=== PATIENT | male | born 1985 | race Caucasian/White ===

== ENCOUNTER 2021-04-23 09:48 | Emergency (ER) | payer BC ==
[2021-04-23 10:13] VITALS: BP 139/85; PULSE 84
--- NOTE | 2021-04-23 10:42 | EDM.PDOC ---
ED HPI GENERAL MEDICAL PROBLEM - General Chief Complaint: Respiratory Problem Stated Complaint: POSS FLU\FEVER\CHILLS Time Seen by Provider: 04/23/21 10:04 Source of Information: Reports: Patient History Limitations: Reports: No Limitations - History of Present Illness INITIAL COMMENTS - FREE TEXT/NARRATIVE: Mr. Blanco is a very pleasant 35-year-old gentleman who now presents to the ED stating that he developed sinus congestion with drainage of green mucus, bilateral ear fullness, worse on the left than the right, a cough productive of greenish sputum, fatigue, and a headache, this past 04/20/2021. He was seen at the [place] walk-in [facility] on 04/21/2021. He states that no tests were performed, but the provider thought that he had ear and sinus i nfections, therefore prescribed him Augmentin 875 mg po BID, which she has been taking as prescribed. He then went from the walk-in clinic to the COVID clinic, where he tested negative. He states that he then developed a fever of 102 degrees this morning, with associated chills. He denies dyspnea or pain with respirations. In addition to the Augmentin, the patient has also been taking Sudafed, Mucinex, and acetaminophen, which have not really been helping his symptoms. Here in the ED this morning, the patient is found to be hemodynamically stable, afebrile, saturating 95% on room air. He appears to be comfortable, in no acute distress. The patient states that he had a few months of cold-like symptoms, particularly for 2 weeks in early February, after returning from [facility]. Otherwise, the patient denies having a recent sore throat, dyspnea, chest pain, palpitations, nausea, vomiting, constipation, diarrhea, abdominal pain, urinary symptoms, recent weight gain or weight loss, recent bloody bowel movements or black bowel movements, recent joint aches, or rashes. The patient's PCP is Lillie Shanks NP. He has received 2 COVID vaccinations plus a booster, as well as an influenza vaccination this season. Treatments LIFT TEAM TECHNICIAN: Reports: Acetaminophen, Other (see below) Other Treatments LIFT TEAM TECHNICIAN: Sudafed Headache Pain Score (Numeric/FACES): 5 - Related Data Allergies Allergy/AdvReac Type Severity Reaction Status Date / Time No Known Allergies Allergy Verified 04/23/21 10:13 Home Meds: Home Meds Amoxicillin/Potassium Clav [Amox-Clav 875-125 mg Tablet] 1 tab PO BID 04/23/21 [History] Past Medical History Respiratory History: Reports: Sleep Apnea (nightly CPAP) Gastrointestinal History: Reports: GERD (untreated), Other (See Below) (Eosinophilic esophagitis) Psychiatric History: Reports: Depression (untreated) Endocrine/Metabolic History: Reports: Obesity/BMI 30+ - Past Surgical History HEENT Surgical History: Reports: Oral Surgery (dental extractions) GI Surgical History: Reports: Colonoscopy, EGD (x 3), Esophageal Dilatation (x 2) Musculoskeletal Surgical History: Reports: Other (See Below) (Right wrist ligament repair. 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) ED ROS GENERAL - Review of Systems Review Of Systems: Comprehensive ROS is negative, except as noted in HPI. ED EXAM, GENERAL - Physical Exam Exam: See Below Exam Limited By: No Limitations General Appearance: Alert, WD/WN, No Apparent Distress Eye Exam: Bilateral Eye: EOMI, Normal Inspection Ears: Normal External Exam, Normal Canal, Hearing Grossly Normal, Other (Mild erythema and mild bulging with clear fluid behind both TMs) Nose: No Blood, Other (Yaiy-nz-qxkxziva nasal mucosal edema, Rt > Lt) Throat/Mouth: Normal Inspection, Normal Lips, Normal Teeth, Normal Gums, Normal Oropharynx, Normal Voice, No Airway Compromise Head: Atraumatic, Normocephalic Neck: Normal Inspection, Supple, Non-Tender, Full Range of Motion. No: Lymphadenopathy (L), Lymphadenopathy (R) Respiratory/Chest: No Respiratory Distress, Lungs Clear, Normal Breath Sounds, No Accessory Muscle Use. No: Decreased Breath Sounds, Crackles, Rhonchi, Wheezing, Stridor, Prolonged Expiration Cardiovascular: Normal Peripheral Pulses, Regular Rate, Rhythm, No Edema, No Gallop, No JVD, No Murmur, No Rub Peripheral Pulses: 3+: Radial (L), Radial (R) GI/Abdominal: Normal Bowel Sounds, Soft, Non-Tender, No Organomegaly, No Distention, No Abnormal Bruit, No Mass Back Exam: Normal Inspection, Full Range of Motion, NT Extremities: Normal Inspection, Normal Range of Motion, No Pedal Edema, Normal Capillary Refill Neurological: Alert, Oriented, Normal Cognition, No Motor/Sensory Deficits Psychiatric: Normal Affect Skin Exam: Warm, Dry, Intact, Normal Color, No Rash Course - Vital Signs Last Recorded V/S: Last Vital Signs Temp 35.8 C L 04/23/21 10:10 Pulse 84 04/23/21 10:10 Resp 18 04/23/21 10:10 BP 139/85 04/23/21 10:10 Pulse Ox 95 04/23/21 10:10 - Orders/Labs/Meds Labs: Laboratory Tests 04/23/21 Range/Units 10:20 Influenza Type A RNA Negative (NEGATIVE) Influenza Type B RNA Negative (NEGATIVE) SARS-CoV-2 RNA (CONNOR) Negative (NEGATIVE) - Re-Assessments/Exams Free Text/Narrative Re-Assessment/Exam: 04/23/21 10:37 I have ordered a swab for the SARS-CoV-2 virus and influenza A + B viruses. At this time, I do not see an indication for blood work or chest x-ray, as the patient does not have a toxic appearance, and his physical exam is consistent with a viral URI, with no systemic abnormalities. The patient is in agreement. 04/23/21 11:38 The patient's swab for the SARS-CoV-2 virus and influenza A + B viruses is nega tive. While not ordered, the testing device also checked for RSV, which returned positive. 04/23/21 11:42 Test results discussed with the patient. As above, he has a viral URI causing sinusitis and bilateral serous otitis media. I am recommending that he discontinue taking Sudafed, as it is not really strong enough to decongest, and discontinue the Mucinex, as it does not do anything, for anybody. I recommended that he stop taking the Augmentin, since he does not have evidence of a bacterial infection. I recommended that he purchase and start using an kvtz-kjq-gzcvjre nasal steroid spray, such as mometasone or fluticasone. I offered to write him a note to be off work for a few days, but he declined. Departure - Departure Time of Disposition: 11:43 Disposition: Home, Self-Care 01 Condition: Good Clinical Impression: Viral URI with cough, Bilateral serous otitis media, Sinusitis - Discharge Information *PRESCRIPTION DRUG MONITORING PROGRAM REVIEWED*: Not Applicable *COPY OF PRESCRIPTION DRUG MONITORING REPORT IN PATIENT HARVINDER: Not Applicable Referrals: Lillie Shanks NP [Primary Care Provider] - Forms: ED Department Discharge Additional Instructions: You were seen in the emergency room for sinus congestion, bilateral ear fullness, and a cough productive of greenish sputum, along with fatigue and a headache since Tuesday, then with a fever this morning. Work-up in the ER included a swab for the SARS-CoV-2 virus and influenza viruses, both of which returned negative, however, the swab also automatically tested for RSV, which returned positive. Based on your history, physical exam, and ER tests, you appear to have a viral URI, also known as a common cold. As discussed, there are no tests to treat a common cold, including RSV - it will have to run its course. We recommend that you discontinue the Augmentin, Sudafed, and Mucinex. We recommend that you purchase and start using an ucke-kmq-azzqklz nasal steroid spray, such as mometasone (Nasonex) or fluticasone (Flonase), and use as directed. Stay adequately hydrated. You may take tbcn-zqs-lfbaydy acetaminophen (Tylenol) or ibuprofen as needed for discomfort. If any other problems, please do not hesitate to return to the ER. Sepsis Event Note (ED) - Evaluation Sepsis Screening Result: No Definite Risk - Focused Exam Vital Signs: Vital Signs Temp Pulse Resp BP Pulse Ox 04/23/21 10:10 35.8 C L 84 18 139/85 95
[2021-04-23 11:03] LABS: CORONAVIRUS COVID-19 NAA NEGATIVE (NEGATIVE)
== END 2021-04-23 11:55 | disposition home or self-care (01) ==
LOC: JD.ED 09:48
DX: J06.9 Acute upper respiratory infection, unspecified (principal); J32.9 Chronic sinusitis, unspecified; H65.93 Unspecified nonsuppurative otitis media, bilateral; K21.9 Gastro-esophageal reflux disease without esophagitis; E66.9 Obesity, unspecified; Z20.822 Contact with and (suspected) exposure to COVID-19; Z68.34 Body mass index [BMI] 34.0-34.9, adult
CPT/HCPCS: 0240U; 99283